=== PATIENT | male | born 1935 | race Caucasian/White ===

== ENCOUNTER 2023-11-11 18:48 | Observation (INO) | payer MEDICARE ==
[2023-11-11 19:48] VITALS: BMI 20.5
[2023-11-11] MEDS ORDERED: Acetaminophen 325 MG TAB PO PRN (21:16)
[2023-11-11] MEDS ORDERED: Acetaminophen 650 MG Suppository PR PRN (21:16)
[2023-11-11] MEDS ORDERED: Senokot S 8.6-50 MG TAB PO PRN (21:16)
[2023-11-11] MEDS ORDERED: hydrALAZINE 20 MG/ML VIAL SLOW IVP PRN (21:16)
[2023-11-12] MEDS: Atorvastatin Calcium 40 MG TAB PO SCH (08:14)
[2023-11-12] MEDS: Mirabegron ER 25 MG ER.TAB PO SCH (08:14)
[2023-11-12] MEDS: Famotidine 20 MG TAB PO SCH (08:14)
[2023-11-12] MEDS: Aspirin 81 mg Enteric Coated Tablet PO SCH (08:15)
[2023-11-12] MEDS: Polyvinyl Alcohol 1.4%/Povidone 0.6% Opth Drops EA EYE SCH (08:15)
[2023-11-12 09:55] LABS: #Basophils 0.05 10x3/uL (0.0-0.2); %Basophils 0.5 % (0.0-1.0); %Eosinophils 1.8 % (0.0-10.0); %Lymphocytes 18.5 % (21.0-51.0); %Monocytes 7.4 % (0.0-10.0); %Neutrophils 71.5 % (42.0-75.0); Hematocrit 42.6 % (42.0-52.0); Hemoglobin 13.1 g/dL (14.0-18.0); Mean Corpuscular HGB CONC 30.8 g/dL (32.0-36.0); Mean Corpuscular Hemoglobin 26.7 pg (27.0-31.0); Mean Corpuscular Volume 86.9 fL (78.0-98.0); Mean Platelet Volume 9.8 fL (7.4-10.4); Platelet Count 265 10x3/uL (130-400); RBC Distribution Width 16.3 % (11.5-14.5)
[2023-11-12 10:23] LABS: #Basophils 0.06 10x3/uL (0.0-0.2); %Basophils 0.6 % (0.0-1.0); %Eosinophils 1.7 % (0.0-10.0); %Lymphocytes 18.3 % (21.0-51.0); %Monocytes 8.3 % (0.0-10.0); %Neutrophils 70.9 % (42.0-75.0); Hemoglobin 13.4 g/dL (14.0-18.0); Mean Corpuscular HGB CONC 30.5 g/dL (32.0-36.0); Mean Corpuscular Hemoglobin 26.7 pg (27.0-31.0); Mean Corpuscular Volume 87.6 fL (78.0-98.0); Mean Platelet Volume 9.9 fL (7.4-10.4); Platelet Count 253 10x3/uL (130-400); RBC Distribution Width 16.4 % (11.5-14.5); Red Blood Cell (RBC) Count 5.02 mill/uL (4.70-6.10)
[2023-11-12 10:24] LABS: ALT (SGPT) 12 U/L (8-55); AST (SGOT) 21 U/L (5-34); Albumin 3.6 g/dL (3.4-4.8); Alkaline Phosphatase 118 U/L (40-110); Anion Gap 13 mmol/L (10-20); BUN (Urea Nitrogen) 12 mg/dL (8.4-25.7); Bilirubin, Total 0.3 mg/dL (0.2-1.2); Calc. Creatinine Clearance 40 mL/min (70-130); Calcium 9.2 mg/dL (7.8-10.44); Carbon Dioxide 22 mmol/L (23-31); Chloride 109 mmol/L (98-107); Estimated GFR 72; Globulin 3.5 g/dL (2.4-3.5); Glucose 105 mg/dL (83-110); Potassium 4.3 mmol/L (3.5-5.1); Protein, Total 7.1 g/dL (5.8-8.1); Sodium 140 mmol/L (136-145)
[2023-11-12 13:32] VITALS: TEMP 97.8
[2023-11-12 13:44] VITALS: BP 172/76
== END 2023-11-12 13:49 | disposition home or self-care (01) ==
LOC: INTOOBSV 18:48 → T4-B 18:48
PROVIDERS: ADMIT Hospitalist; ATTEND Internal Medicine
DX: R41.82 Altered mental status, unspecified (principal); E78.5 Hyperlipidemia, unspecified; I11.0 Hypertensive heart disease with heart failure; I50.32 Chronic diastolic (congestive) heart failure; I25.10 Atherosclerotic heart disease of native coronary artery without angina pectoris; M19.90 Unspecified osteoarthritis, unspecified site; F03.90 Unspecified dementia, unspecified severity, without behavioral disturbance, psychotic disturbance, mood disturbance, and anxiety; I44.7 Left bundle-branch block, unspecified; F17.220 Nicotine dependence, chewing tobacco, uncomplicated; Z88.8 Allergy status to other drugs, medicaments and biological substances; Z79.82 Long term (current) use of aspirin; Z79.899 Other long term (current) drug therapy
CPT/HCPCS: 36415; 70551; 80053; 82550; 85025

== ENCOUNTER 2024-03-22 18:36 | Inpatient (IN) | payer MEDICARE, OTHER ==
[2024-03-22 20:40] LABS: #Basophils 0.05 10x3/uL (0.0-0.2); #Eosinophils Less than 0.03 10x3/uL (0.0-0.7); %Basophils 0.2 % (0.0-1.0); %Eosinophils 0.1 % (0.0-10.0); %Lymphocytes 7.5 % (21.0-51.0); %Monocytes 8.6 % (0.0-10.0); %Neutrophils 83.2 % (42.0-75.0); Hemoglobin 11.4 g/dL (14.0-18.0); Mean Corpuscular HGB CONC 30.8 g/dL (32.0-36.0); Mean Corpuscular Hemoglobin 27.5 pg (27.0-31.0); Mean Corpuscular Volume 89.2 fL (78.0-98.0); Mean Platelet Volume 10.8 fL (7.4-10.4); Platelet Count 148 10x3/uL (130-400); Red Blood Cell (RBC) Count 4.15 mill/uL (4.70-6.10)
[2024-03-22 20:55] LABS: Alcohol Less than 10.0 mg/dL (Less than 10); INR-International Normal Ratio 1.1; Prothrombin Time 13.9 sec (12.0-14.7)
[2024-03-22 20:56] LABS: PTT 25.8 sec (22.9-36.1)
[2024-03-22] MEDS ORDERED: Boostrix 0.5 ML (Tdap) VIAL (>/=7 yrs of age) ONE (20:56)
[2024-03-22 20:58] LABS: ALT (SGPT) 14 U/L (8-55); AST (SGOT) 19 U/L (5-34); Albumin 3.9 g/dL (3.4-4.8); Alkaline Phosphatase 116 U/L (40-110); Anion Gap 14 mmol/L (10-20); BUN (Urea Nitrogen) 15 mg/dL (8.4-25.7); Bilirubin, Total 0.4 mg/dL (0.2-1.2); Calc. Creatinine Clearance 0 mL/min (70-130); Calcium 8.7 mg/dL (7.8-10.44); Carbon Dioxide 21 mmol/L (23-31); Chloride 107 mmol/L (98-107); Estimated GFR 64; Globulin 3.1 g/dL (2.4-3.5); Glucose 124 mg/dL (83-110); Lipase 47 U/L (8-78); Potassium 4.1 mmol/L (3.5-5.1); Sodium 138 mmol/L (136-145)
[2024-03-22 21:05] LABS: Troponin I Less than 0.010 ng/mL (< 0.028)
[2024-03-23] MEDS ORDERED: Bacitracin 1 PK ONE (00:16)
[2024-03-23] MEDS ORDERED: Morphine 2 MG/ML VIAL ONE (00:17)
[2024-03-23 01:18] VITALS: BMI 31.5
[2024-03-23] MEDS ORDERED: Metoclopramide HCl 10 MG (2 mL) VIAL ONE (02:23)
[2024-03-23] MEDS ORDERED: Ondansetron PF 4 MG/2 ML Vial IVP PRN (03:05)
[2024-03-23] MEDS ORDERED: Dextrose 50% Abboject 50 ML SYRINGE SLOW IVP PRN (03:05)
[2024-03-23] MEDS ORDERED: Dextrose 5% in Water 1,000 ML IV PRN (03:05)
[2024-03-23] MEDS ORDERED: Glucagon 1 MG/ML KIT IM PRN (03:05)
[2024-03-23 05:24] LABS: #Basophils 0.03 10x3/uL (0.0-0.2); #Eosinophils Less than 0.03 10x3/uL (0.0-0.7); %Basophils 0.2 % (0.0-1.0); %Lymphocytes 11.9 % (21.0-51.0); %Monocytes 10.3 % (0.0-10.0); %Neutrophils 77.1 % (42.0-75.0); Hemoglobin 10.5 g/dL (14.0-18.0); Mean Corpuscular HGB CONC 31.8 g/dL (32.0-36.0); Mean Platelet Volume 10.4 fL (7.4-10.4); Platelet Count 153 10x3/uL (130-400); RBC Distribution Width 15.2 % (11.5-14.5); Red Blood Cell (RBC) Count 3.75 mill/uL (4.70-6.10)
[2024-03-23 05:26] LABS: Anion Gap 12 mmol/L (10-20); BUN (Urea Nitrogen) 16 mg/dL (8.4-25.7); Calc. Creatinine Clearance 51 mL/min (70-130); Calcium 8.5 mg/dL (7.8-10.44); Carbon Dioxide 24 mmol/L (23-31); Chloride 106 mmol/L (98-107); Estimated GFR 60; Glucose 121 mg/dL (83-110); Potassium 4.6 mmol/L (3.5-5.1); Sodium 137 mmol/L (136-145)
[2024-03-23] MEDS: Sodium Chloride 0.9% 1,000 ML IV SCH (05:27)
[2024-03-23] MEDS: Morphine 2 MG/ML VIAL SLOW IVP PRN (05:31)
[2024-03-23] MEDS ORDERED: CEFAZOLIN 2 GM in Sodium Chloride 0.9% 100 ML IVPB SCH (07:45)
[2024-03-23 12:37] VITALS: BMI 31.5
[2024-03-23] MEDS ORDERED: CEFAZOLIN 2 GM VIAL ONE (12:46)
[2024-03-23] MEDS ORDERED: fentaNYL 50 mcg/mL 1 mL Vial ONE ×3 (12:47→15:39)
[2024-03-23] MEDS ORDERED: Lidocaine 1% PF 5 ML VIAL ONE (12:47)
[2024-03-23] MEDS ORDERED: PROPOFOL 20 ML ONE (12:47)
[2024-03-23] MEDS ORDERED: PHENYLEPHRINE-NS 100 MCG/ML 10 ML SYRINGE ONE (12:55)
[2024-03-23] MEDS ORDERED: Rocuronium Bromide 10 MG/ML (10ML VIAL) ONE (13:08)
[2024-03-23] MEDS ORDERED: Ondansetron PF 4 MG/2 ML Vial ONE (13:34)
[2024-03-23] MEDS ORDERED: Dexamethasone 4 mg/ml Vial ONE (13:34)
[2024-03-23] MEDS ORDERED: SUGAMMADEX SODIUM 200 MG/2 ML VIAL ONE (13:44)
[2024-03-23] MEDS ORDERED: Ondansetron HCl/PF 4 MG/2 ML Vial IVP PRN (14:26)
[2024-03-23] MEDS ORDERED: Nicotine 14 MG PATCH TD PRN (17:17)
[2024-03-23] MEDS: traMADol HCl 50 MG TAB PO PRN (18:41)
[2024-03-23] MEDS: Melatonin 3 MG TAB PO SCH (20:39)
[2024-03-23] MEDS: CEFAZOLIN 2 GM in Sodium Chloride 0.9% 100 ML IVPB SCH (20:40)
[2024-03-24 06:06] LABS: #Basophils Less than 0.03 10x3/uL (0.0-0.2); #Eosinophils Less than 0.03 10x3/uL (0.0-0.7); %Basophils 0.1 % (0.0-1.0); %Eosinophils 0.1 % (0.0-10.0); %Lymphocytes 13.6 % (21.0-51.0); %Monocytes 14.5 % (0.0-10.0); %Neutrophils 71.3 % (42.0-75.0); Hematocrit 27.4 % (42.0-52.0); Hemoglobin 8.4 g/dL (14.0-18.0); Mean Corpuscular HGB CONC 30.7 g/dL (32.0-36.0); Mean Corpuscular Hemoglobin 27.3 pg (27.0-31.0); Platelet Count 160 10x3/uL (130-400); RBC Distribution Width 15.4 % (11.5-14.5); Red Blood Cell (RBC) Count 3.08 mill/uL (4.70-6.10)
[2024-03-24] MEDS ORDERED: Amlodipine 5 MG TAB PO PRN (09:09)
[2024-03-24] MEDS: Atorvastatin Calcium 40 MG TAB PO SCH (09:28)
[2024-03-24] MEDS: Senokot S 8.6-50 MG TAB PO SCH (09:29)
[2024-03-24] MEDS: Mirabegron ER 25 MG ER.TAB PO SCH (09:29)
[2024-03-24] MEDS: Enoxaparin 40 MG (0.4 mL) SYRINGE SC SCH (09:31)
[2024-03-24 10:18] LABS: Bacteria/HPF None Seen HPF (None Seen); Bilirubin Negative (Negative); Blood, Urine 1+ (Negative); Clarity Clear (Clear); Glucose, Urine (Dipstick) Normal (Negative); Ketone, Urine Trace mg/dL (Negative); Leukocyte Negative Leu/uL (Negative); Nitrite Negative (Negative); Protein, Urine (Dipstick) 20 mg/dL (Neg-Trace); RBC/HPF 0-3 HPF (0-3); Specific Gravity, Urine 1.026 (1.002-1.036); Squamous Epithelial 0-3 HPF (0-3); Urobilinogen Normal mg/dL (Less than 2); WBC/HPF 0-3 HPF (0-3)
[2024-03-24] MEDS: Acetaminophen 325 MG TAB PO PRN (18:23)
[2024-03-24] MEDS: Cholecalciferol 1,000 UNITS (25 MCG) TAB PO SCH (21:19)
[2024-03-24] MEDS: Cyanocobalamin (Vitamin B-12) 1,000 MCG TAB PO SCH (21:19)
[2024-03-24] MEDS: Thiamine 100 MG TAB PO SCH (21:19)
[2024-03-24] MEDS: Folic Acid 1 MG TAB PO SCH (21:19)
[2024-03-24] MEDS: Lorazepam 2 MG/ML VIAL SLOW IVP SCH (22:12)
[2024-03-25] MEDS: Multivit, Therapeutic 1 TAB PO SCH (05:15)
[2024-03-25 06:00] LABS: Anion Gap 13 mmol/L (10-20); BUN (Urea Nitrogen) 31 mg/dL (8.4-25.7); Calc. Creatinine Clearance 45 mL/min (70-130); Calcium 8.3 mg/dL (7.8-10.44); Carbon Dioxide 18 mmol/L (23-31); Chloride 109 mmol/L (98-107); Estimated GFR 52; Glucose 100 mg/dL (83-110); Magnesium 2.4 mg/dL (1.6-2.6); Potassium 4.2 mmol/L (3.5-5.1); Sodium 136 mmol/L (136-145)
[2024-03-25 06:19] LABS: Mean Corpuscular Hemoglobin 27.5 pg (27.0-31.0)
[2024-03-25 06:20] LABS: #Basophils 0.05 10x3/uL (0.0-0.2); %Basophils 0.4 % (0.0-1.0); %Eosinophils 0.2 % (0.0-10.0); %Lymphocytes 13.3 % (21.0-51.0); %Monocytes 13.2 % (0.0-10.0); %Neutrophils 72.4 % (42.0-75.0); Hemoglobin 8.2 g/dL (14.0-18.0); Mean Corpuscular HGB CONC 30.4 g/dL (32.0-36.0); Mean Corpuscular Volume 90.6 fL (78.0-98.0); Mean Platelet Volume 10.7 fL (7.4-10.4); Platelet Count 220 10x3/uL (130-400); RBC Distribution Width 15.3 % (11.5-14.5); Red Blood Cell (RBC) Count 2.98 mill/uL (4.70-6.10)
[2024-03-25 15:26] VITALS: BP 150/66; TEMP 98.9
== END 2024-03-25 18:15 | DRG 481 ==
LOC: ERS 18:36 → SURG B 03-23 00:23
PROVIDERS: ADMIT Surgery; ATTEND Surgery
PROC: 0QS704Z Reposition Left Upper Femur with Internal Fixation Device, Open Approach (ICD-10-PCS; principal; 2024-03-23)
DX: M97.02XA Periprosthetic fracture around internal prosthetic left hip joint, initial encounter (principal); I13.0 Hypertensive heart and chronic kidney disease with heart failure and stage 1 through stage 4 chronic kidney disease, or unspecified chronic kidney disease; I50.32 Chronic diastolic (congestive) heart failure; I25.10 Atherosclerotic heart disease of native coronary artery without angina pectoris; S40.812A Abrasion of left upper arm, initial encounter; N18.2 Chronic kidney disease, stage 2 (mild); W19.XXXA Unspecified fall, initial encounter; Z66 Do not resuscitate; F03.90 Unspecified dementia, unspecified severity, without behavioral disturbance, psychotic disturbance, mood disturbance, and anxiety; Z98.890 Other specified postprocedural states; Z88.2 Allergy status to sulfonamides; Z88.8 Allergy status to other drugs, medicaments and biological substances; Z79.82 Long term (current) use of aspirin; Z79.899 Other long term (current) drug therapy
CPT/HCPCS: 36415; 70450; 71045; 72125; 72170; 72192; 80048; 80053; 80307; 81001; 83690; 83735; 84484; 85025; 85610; 85730; 86850; 86900; 86901; 87086; 90471; 90715; 93005; 96374; 97139; C1713; C1889; G0390; J1100; J1650; J2060; J2272; J2405; J2704; J2765; J3010; J7030

== ENCOUNTER 2024-04-02 12:04 | Inpatient (IN) | payer MEDICARE, OTHER ==
[2024-04-02] MEDS ORDERED: Iopamidol-370 76% 500 ML MDV (1 ML CHARGE) ONE (13:01)
[2024-04-02 13:37] LABS: #Basophils 0.03 10x3/uL (0.0-0.2); %Basophils 0.2 % (0.0-1.0); %Eosinophils 2.5 % (0.0-10.0); %Lymphocytes 17.3 % (21.0-51.0); %Neutrophils 70.1 % (42.0-75.0); Hematocrit 13.9 % (42.0-52.0); Hemoglobin 4.4 g/dL (14.0-18.0); Mean Corpuscular HGB CONC 31.7 g/dL (32.0-36.0); Mean Corpuscular Volume 85.3 fL (78.0-98.0); Mean Platelet Volume 9.2 fL (7.4-10.4); Platelet Count 723 10x3/uL (130-400); RBC Distribution Width 15.9 % (11.5-14.5); Red Blood Cell (RBC) Count 1.63 mill/uL (4.70-6.10)
[2024-04-02 14:00] LABS: ALT (SGPT) 14 U/L (8-55); AST (SGOT) 24 U/L (5-34); Albumin 2.6 g/dL (3.4-4.8); Alkaline Phosphatase 93 U/L (40-110); Anion Gap 14 mmol/L (10-20); BUN (Urea Nitrogen) 29 mg/dL (8.4-25.7); Bilirubin, Total 0.9 mg/dL (0.2-1.2); CK (CPK) 113 U/L (30-200); Calc. Creatinine Clearance 0 mL/min (70-130); Carbon Dioxide 21 mmol/L (23-31); Chloride 108 mmol/L (98-107); Estimated GFR 72; Globulin 2.9 g/dL (2.4-3.5); Glucose 94 mg/dL (83-110); Lipase 59 U/L (8-78); Magnesium 2.5 mg/dL (1.6-2.6); Protein, Total 5.5 g/dL (5.8-8.1); Sodium 138 mmol/L (136-145)
[2024-04-02 14:02] LABS: INR-International Normal Ratio 1.2; PTT 32.7 sec (22.9-36.1); Prothrombin Time 14.9 sec (12.0-14.7)
[2024-04-02 14:03] LABS: Troponin I Less than 0.010 ng/mL (< 0.028)
[2024-04-02] MEDS ORDERED: Pantoprazole 40 MG VIAL ONE (15:11)
[2024-04-02] MEDS ORDERED: Pantoprazole 80 MG, Admixture Fee 1 EACH in Sodium Chloride 0.9% 100 ML IVPB SCH (15:30)
[2024-04-02] MEDS ORDERED: fentaNYL 50 mcg/mL 1 mL Vial ONE (16:52)
[2024-04-02] MEDS ORDERED: Ondansetron PF 4 MG/2 ML Vial IVP PRN (18:33)
[2024-04-02] MEDS ORDERED: Acetaminophen/Codeine 30-300mg Tablet PO PRN (18:33)
[2024-04-02] MEDS ORDERED: Acetaminophen 325 MG TAB PO PRN (18:33)
[2024-04-02] MEDS ORDERED: Bisacodyl 5 MG TAB PO PRN (18:33)
[2024-04-02] MEDS ORDERED: Acetaminophen 650 MG Suppository PR PRN (18:33)
[2024-04-02] MEDS: Sodium Chloride 0.9% 1,000 ML IV SCH (21:34)
[2024-04-02] MEDS: Pantoprazole 80 MG in Sodium Chloride 0.9% 100 ML IVPB SCH (21:34)
[2024-04-02 21:38] VITALS: BMI 23.1
[2024-04-02] MEDS: Bisacodyl 10 MG SUPP PR SCH (22:21)
[2024-04-02] MEDS: Fleet Saline Enema 133 ML BOT PR SCH (22:21)
[2024-04-03] MEDS: Acetaminophen/Codeine 30-300mg Tablet PO PRN (00:46)
[2024-04-03] MEDS: Fleet Saline Enema 133 ML BOT PR SCH (05:30)
[2024-04-03 05:33] LABS: Anion Gap 13 mmol/L (10-20); BUN (Urea Nitrogen) 28 mg/dL (8.4-25.7); Calc. Creatinine Clearance 48 mL/min (70-130); Calcium 8.1 mg/dL (7.8-10.44); Carbon Dioxide 19 mmol/L (23-31); Chloride 109 mmol/L (98-107); Estimated GFR 78; Glucose 81 mg/dL (83-110); Potassium 4.6 mmol/L (3.5-5.1); Sodium 136 mmol/L (136-145)
[2024-04-03 05:39] LABS: #Basophils 0.07 10x3/uL (0.0-0.2); %Basophils 0.6 % (0.0-1.0); %Eosinophils 1.8 % (0.0-10.0); %Lymphocytes 14.1 % (21.0-51.0); %Monocytes 7.8 % (0.0-10.0); %Neutrophils 75.1 % (42.0-75.0); Hemoglobin 10.5 g/dL (14.0-18.0); Mean Corpuscular HGB CONC 31.8 g/dL (32.0-36.0); Mean Corpuscular Hemoglobin 26.5 pg (27.0-31.0); Mean Corpuscular Volume 83.3 fL (78.0-98.0); Mean Platelet Volume 8.7 fL (7.4-10.4); Platelet Count 517 10x3/uL (130-400); Red Blood Cell (RBC) Count 3.96 mill/uL (4.70-6.10)
[2024-04-03] MEDS: Dextrose 5%-Lactated Ringers 1,000 ML IV SCH (13:01)
[2024-04-03] MEDS: Sodium Chloride 0.9% 1,000 ML IV SCH (13:59)
[2024-04-03] MEDS ORDERED: traMADol HCl 50 MG TAB PO PRN (15:27)
[2024-04-03] MEDS ORDERED: Acetaminophen 325 MG TAB PO PRN (15:30)
[2024-04-03 18:21] LABS: Hematocrit 39.7 % (42.0-52.0)
[2024-04-03] MEDS: Acetaminophen 325 MG TAB PO SCH ×2 (20:30→20:51)
[2024-04-03] MEDS: Senokot S 8.6-50 MG TAB PO SCH (20:51)
[2024-04-03] MEDS: Cholecalciferol 1,000 UNITS (25 MCG) TAB PO SCH (20:51)
[2024-04-03] MEDS: Multivit, Therapeutic 1 TAB PO SCH (20:51)
[2024-04-03] MEDS: Cyanocobalamin (Vitamin B-12) 1,000 MCG TAB PO SCH (20:51)
[2024-04-03] MEDS: Thiamine HCl 200 MG/2 ML VIAL SLOW IVP SCH (20:51)
[2024-04-03] MEDS: Folic Acid 1 MG TAB PO SCH (20:51)
[2024-04-04 03:58] LABS: #Basophils 0.06 10x3/uL (0.0-0.2); %Basophils 0.6 % (0.0-1.0); %Eosinophils 2.1 % (0.0-10.0); %Lymphocytes 13.4 % (21.0-51.0); %Monocytes 10.2 % (0.0-10.0); %Neutrophils 73.3 % (42.0-75.0); Hematocrit 33.5 % (42.0-52.0); Hemoglobin 10.5 g/dL (14.0-18.0); Mean Corpuscular HGB CONC 31.3 g/dL (32.0-36.0); Mean Corpuscular Hemoglobin 27.1 pg (27.0-31.0); Mean Corpuscular Volume 86.6 fL (78.0-98.0); Mean Platelet Volume 8.6 fL (7.4-10.4); Platelet Count 481 10x3/uL (130-400); RBC Distribution Width 17.2 % (11.5-14.5); Red Blood Cell (RBC) Count 3.87 mill/uL (4.70-6.10)
[2024-04-04 04:20] LABS: ALT (SGPT) 18 U/L (8-55); AST (SGOT) 28 U/L (5-34); Albumin 2.6 g/dL (3.4-4.8); Alkaline Phosphatase 115 U/L (40-110); Anion Gap 14 mmol/L (10-20); BUN (Urea Nitrogen) 22 mg/dL (8.4-25.7); Bilirubin, Total 1.3 mg/dL (0.2-1.2); Calc. Creatinine Clearance 53 mL/min (70-130); Carbon Dioxide 15 mmol/L (23-31); Chloride 109 mmol/L (98-107); Estimated GFR 84; Globulin 3.3 g/dL (2.4-3.5); Glucose 75 mg/dL (83-110); Magnesium 2.1 mg/dL (1.6-2.6); Phosphorus 2.8 mg/dL (2.3-4.7); Potassium 4.5 mmol/L (3.5-5.1); Protein, Total 5.9 g/dL (5.8-8.1); Sodium 133 mmol/L (136-145)
[2024-04-04] MEDS: Pantoprazole 40 MG VIAL IVP SCH (08:09)
[2024-04-04] MEDS ORDERED: hydrALAZINE 25 MG TAB PO PRN (09:21)
[2024-04-04] MEDS: Sodium Bicarbonate Tab 325 MG TAB PO SCH ×2 (09:33→14:00)
[2024-04-04] MEDS: Lactated Ringer's 1,000 ML IV SCH (20:18)
[2024-04-04] MEDS: Polyethylene Glycol 3350 17 GM Packet PO SCH (20:19)
[2024-04-05 06:06] LABS: #Basophils 0.04 10x3/uL (0.0-0.2); %Basophils 0.5 % (0.0-1.0); %Eosinophils 3.3 % (0.0-10.0); %Lymphocytes 17.8 % (21.0-51.0); %Monocytes 8.6 % (0.0-10.0); %Neutrophils 69.3 % (42.0-75.0); Hematocrit 33.5 % (42.0-52.0); Hemoglobin 10.6 g/dL (14.0-18.0); Mean Corpuscular HGB CONC 31.6 g/dL (32.0-36.0); Mean Corpuscular Hemoglobin 26.7 pg (27.0-31.0); Mean Corpuscular Volume 84.4 fL (78.0-98.0); Mean Platelet Volume 8.8 fL (7.4-10.4); Platelet Count 521 10x3/uL (130-400); RBC Distribution Width 16.8 % (11.5-14.5); Red Blood Cell (RBC) Count 3.97 mill/uL (4.70-6.10)
[2024-04-05 06:32] LABS: Anion Gap 13 mmol/L (10-20); BUN (Urea Nitrogen) 15 mg/dL (8.4-25.7); Calc. Creatinine Clearance 53 mL/min (70-130); Calcium 8.1 mg/dL (7.8-10.44); Carbon Dioxide 19 mmol/L (23-31); Chloride 112 mmol/L (98-107); Estimated GFR 85; Glucose 77 mg/dL (83-110); Potassium 3.8 mmol/L (3.5-5.1); Sodium 140 mmol/L (136-145)
[2024-04-06] MEDS ORDERED: Sodium Bicarbonate Tab 325 MG TAB ONE ×3 (09:21→20:50)
[2024-04-06] MEDS ORDERED: Pantoprazole DR 40 MG TAB ONE (09:21)
[2024-04-06] MEDS ORDERED: Acetaminophen 325 MG TAB ONE ×3 (09:21→20:50)
[2024-04-06] MEDS ORDERED: Senokot S 8.6-50 MG TAB ONE ×2 (09:21→20:50)
[2024-04-06] MEDS ORDERED: Polyethylene Glycol 3350 17 GM Packet ONE ×2 (09:21→20:50)
[2024-04-06] MEDS ORDERED: Amlodipine 5 MG TAB ONE ×2 (19:57→20:50)
[2024-04-06] MEDS ORDERED: Cholecalciferol 1,000 UNITS (25 MCG) TAB ONE (20:50)
[2024-04-06] MEDS ORDERED: Folic Acid 1 MG TAB ONE (20:50)
[2024-04-06] MEDS ORDERED: Multivit, Therapeutic 1 TAB ONE (20:50)
[2024-04-06] MEDS ORDERED: Thiamine HCl 200 MG/2 ML VIAL ONE (20:50)
[2024-04-06] MEDS ORDERED: Cyanocobalamin (Vitamin B-12) 1,000 MCG TAB ONE (20:50)
[2024-04-07] MEDS ORDERED: Amlodipine 5 MG TAB ONE ×3 (08:25→20:27)
[2024-04-07] MEDS ORDERED: Polyethylene Glycol 3350 17 GM Packet ONE (08:44)
[2024-04-07] MEDS ORDERED: Sodium Bicarbonate Tab 325 MG TAB ONE ×2 (08:44→21:54)
[2024-04-07] MEDS ORDERED: Pantoprazole DR 40 MG TAB ONE (08:44)
[2024-04-07] MEDS ORDERED: Acetaminophen 325 MG TAB ONE ×2 (08:44→21:54)
[2024-04-07] MEDS ORDERED: Cyanocobalamin (Vitamin B-12) 1,000 MCG TAB ONE (21:54)
[2024-04-07] MEDS ORDERED: Cholecalciferol 1,000 UNITS (25 MCG) TAB ONE (21:54)
[2024-04-07] MEDS ORDERED: Senokot S 8.6-50 MG TAB ONE (21:54)
[2024-04-07] MEDS ORDERED: Folic Acid 1 MG TAB ONE (21:54)
[2024-04-07] MEDS ORDERED: Multivit, Therapeutic 1 TAB ONE (21:54)
[2024-04-07] MEDS ORDERED: Thiamine HCl 200 MG/2 ML VIAL ONE (21:54)
[2024-04-08] MEDS ORDERED: Amlodipine 5 MG TAB ONE (08:36)
[2024-04-08] MEDS ORDERED: Polyethylene Glycol 3350 17 GM Packet ONE (08:36)
[2024-04-08] MEDS ORDERED: Acetaminophen 325 MG TAB ONE (08:36)
[2024-04-08] MEDS: Amlodipine 5 MG TAB ONE ×2 (08:36→20:56)
[2024-04-08] MEDS ORDERED: Pantoprazole 40 MG VIAL ONE (08:36)
[2024-04-08] MEDS ORDERED: Sodium Bicarbonate Tab 325 MG TAB ONE (08:36)
[2024-04-08] MEDS ORDERED: Senokot S 8.6-50 MG TAB ONE (08:36)
[2024-04-09 07:35] VITALS: BP 153/74; TEMP 98.1
[2024-04-09] MEDS: Amlodipine 5 MG TAB ONE (08:55)
== END 2024-04-09 10:17 | disposition home or self-care (01) | DRG 811 ==
LOC: ERS 12:04 → ERHOLD 17:12 → IMCU/EMU 21:52 → SURG A 04-04 21:41
PROVIDERS: ADMIT Internal Medicine; ATTEND Internal Medicine
PROC: 30233N1 Transfusion of Nonautologous Red Blood Cells into Peripheral Vein, Percutaneous Approach (ICD-10-PCS; principal; 2024-04-02)
DX: D64.9 Anemia, unspecified (principal); G93.41 Metabolic encephalopathy; I50.32 Chronic diastolic (congestive) heart failure; E44.0 Moderate protein-calorie malnutrition; E87.20 Acidosis, unspecified; K56.41 Fecal impaction; Z66 Do not resuscitate; E78.5 Hyperlipidemia, unspecified; I11.0 Hypertensive heart disease with heart failure; F03.90 Unspecified dementia, unspecified severity, without behavioral disturbance, psychotic disturbance, mood disturbance, and anxiety; M19.90 Unspecified osteoarthritis, unspecified site; I25.10 Atherosclerotic heart disease of native coronary artery without angina pectoris; F17.220 Nicotine dependence, chewing tobacco, uncomplicated; Z88.2 Allergy status to sulfonamides; Z88.8 Allergy status to other drugs, medicaments and biological substances; Z79.899 Other long term (current) drug therapy; Z79.82 Long term (current) use of aspirin; Z95.0 Presence of cardiac pacemaker; Z95.5 Presence of coronary angioplasty implant and graft; Z95.1 Presence of aortocoronary bypass graft; W19.XXXA Unspecified fall, initial encounter; Y93.89 Activity, other specified; Y92.89 Other specified places as the place of occurrence of the external cause; Z79.01 Long term (current) use of anticoagulants; Z68.22 Body mass index [BMI] 22.0-22.9, adult; E87.8 Other disorders of electrolyte and fluid balance, not elsewhere classified; I25.2 Old myocardial infarction
CPT/HCPCS: 36415; 36430; 70450; 71045; 72125; 72170; 74174; 80048; 80053; 82274; 82550; 83605; 83690; 83735; 83880; 84100; 84484; 85025; 85610; 85730; 86850; 86900; 86901; 93005; 96374; J2470; J3010; J3411; J7030; J7120; P9016; Q9967